=== PATIENT | female | born 1945 | race Caucasian/White ===

== ENCOUNTER → 2024-06-11 | Outpatient (REF) | payer MEDICARE | LOC: RAD 12:40 | PROVIDERS: ATTEND Orthopaedic Surgery Hand Surgery | DX: S82.852D Displaced trimalleolar fracture of left lower leg, subsequent encounter for closed fracture with routine healing (principal) ==

== ENCOUNTER → 2024-07-22 | Outpatient (REF) | payer MEDICARE | LOC: RAD 11:40 | PROVIDERS: ATTEND Internal Medicine Gastroenterology | DX: S82.852D Displaced trimalleolar fracture of left lower leg, subsequent encounter for closed fracture with routine healing (principal) ==